=== PATIENT | male | born 2000 | race Caucasian/White ===

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

== ENCOUNTER 2021-07-09 07:46 | Emergency (ER) | payer BC ==
--- NOTE | 2021-07-09 08:54 | CR ---
Chest: PA view of the chest was obtained. Comparison: No prior chest imaging is available. Heart size and mediastinum are normal. Previous sternotomy is seen. Lungs are clear with no acute parenchymal change. Bony structures show nothing acute. Impression: 1. Prior sternotomy. 2. Nothing acute is seen on PA chest x-ray. Diagnostic code #2
--- NOTE | 2021-07-09 08:54 | CR ---
CT neck Technique: AP and lateral views of the neck were obtained. Comparison: No prior neck study is available. Epiglottis is not well seen and may be slightly prominent in size. Minimal soft tissue prominence is also seen within the lower prevertebral soft tissues below the epiglottis. No radiopaque foreign object is seen. No bony abnormality is appreciated. Impression: 1. Findings questionable for slight prominence of the epiglottis and mild prevertebral soft tissue swelling below the epiglottis. Please correlate if patient has correlating symptoms. 2. Two-view soft tissue neck exam is otherwise unremarkable. Diagnostic code #5
--- NOTE | 2021-07-09 08:58 | EDM.PDOC ---
ED HPI GENERAL MEDICAL PROBLEM - General Chief Complaint: Respiratory Problem Stated Complaint: SORE THROAT Time Seen by Provider: 07/09/21 07:51 Source of Information: Reports: Patient History Limitations: Reports: No Limitations - History of Present Illness INITIAL COMMENTS - FREE TEXT/NARRATIVE: The patient presents with a sore throat, cough and trouble breathing. This all started 9 days ago with a sore throat. It progressed to a cough. He was tested on Thursday for COVID 19 and it was negative. Today he had shortness of breath and nearly passed out at work. He has no fever or chills. My nurse says he has a stridor when he coughs. He has no chest pain. He has no abdominal pain, nausea or vomiting. He vapes. He has a history of heart surgery as a child to repair a septal defect. Onset: Gradual Duration: Day(s): (9) Location: Reports: Other (throat) Quality: Reports: Sharp Severity: Moderate Improves with: Reports: None Worsens with: Reports: None Associated Symptoms: Reports: Cough, Shortness of Breath. Denies: Chest Pain, Fever/Chills Throat Pain Score (Numeric/FACES): 8 - Related Data Allergies Allergy/AdvReac Type Severity Reaction Status Date / Time Iodinated Contrast Media Allergy Airway Verified 07/09/21 10:07 Tightness Home Meds: Home Meds Amoxicillin 875 mg PO BID #20 tab 07/09/21 [Rx] predniSONE [Prednisone] 40 mg PO DAILY #10 tablet 07/09/21 [Rx] Past Medical History - Past Health History Medical/Surgical History: Denies Medical/Surgical History Neurological History: Reports: Migraines Psychiatric History: Reports: Anxiety, Depression - Past Surgical History Cardiovascular Surgical History: Reports: Other (See Below) Other Cardiovascular Surgeries/Procedures: hole in heart repair. Social & Family History - Tobacco Use Tobacco Use Status *Q: Current Every Day Tobacco User Years of Tobacco use: 5 Packs/Tins Daily: 0.2 - Caffeine Use Caffeine Use: Reports: Energy Drinks - Recreational Drug Use Recreational Drug Type: Reports: Marijuana/Hashish ED ROS GENERAL - Review of Systems Review Of Systems: See Below Constitutional: Reports: No Symptoms HEENT: Reports: Throat Pain Respiratory: Reports: Shortness of Breath, Cough Cardiovascular: Reports: No Symptoms Endocrine: Reports: No Symptoms GI/Abdominal: Reports: No Symptoms : Reports: No Symptoms Musculoskeletal: Reports: No Symptoms ED EXAM, GENERAL - Physical Exam Exam: See Below Exam Limited By: No Limitations General Appearance: Alert, No Apparent Distress Ears: Normal External Exam Nose: Normal Inspection Throat/Mouth: Other (erythema and edema of the oropharynx and tonsils) Head: Atraumatic, Normocephalic Neck: Normal Inspection Respiratory/Chest: No Respiratory Distress, Stridor Cardiovascular: Regular Rate, Rhythm, No Edema, No Murmur GI/Abdominal: Soft, Non-Tender, No Organomegaly, No Mass Back Exam: Normal Inspection Extremities: Normal Inspection Course - Vital Signs Last Recorded V/S: Last Vital Signs Temp 97.5 F 07/09/21 10:04 Pulse 85 07/09/21 10:04 Resp 20 07/09/21 10:04 BP 128/76 07/09/21 10:04 Pulse Ox 96 07/09/21 10:04 - Orders/Labs/Meds Orders: Active Orders 24 hr Category Date Time Status Peripheral IV Care [RC] . DIRECTED Care 07/09/21 09:02 Active BLOOD CULTURE [MREF] Stat Lab 07/09/21 09:15 Received BLOOD CULTURE [MREF] Stat Lab 07/09/21 09:15 Received Sodium Chloride 0.9% [Normal Saline] 1,000 ml Med 07/09/21 09:15 Active IV ASDIRECTED Sodium Chloride 0.9% [Saline Flush] Med 07/09/21 09:01 Active 10 ml FLUSH ASDIRECTED PRN Blood Culture x2 Reflex Set [OM.PC] Stat Oth 07/09/21 09:02 Ordered Peripheral IV Insertion Adult [OM.PC] Stat Oth 07/09/21 09:01 Ordered Medication Orders Sodium Chloride (Normal Saline) 1,000 mls @ 125 mls/hr IV ASDIRECTED RANJAN Last Admin: 07/09/21 09:37 Dose: 125 mls/hr Documented by: KATHRIN Sodium Chloride (Sodium Chloride 0.9% 10 Ml Syringe) 10 ml FLUSH ASDIRECTED PRN PRN Reason: Keep Vein Open Last Admin: 07/09/21 09:21 Dose: 10 ml Documented by: KATHRIN Labs: Laboratory Tests 07/09/21 07/09/21 07/09/21 Range/Units 08:10 08:10 09:15 WBC 8.78 (4.23-9.07) K/mm3 RBC 4.94 (4.63-6.08) M/mm3 Hgb 15.6 (13.7-17.5) gm/dl Hct 46.5 (40.1-51.0) % MCV 94.1 H (79.0-92.2) fl MCH 31.6 (25.7-32.2) pg MCHC 33.5 (32.2-35.5) g/dl RDW Std Deviation 42.6 (35.1-43.9) fL Plt Count 212 (163-337) K/mm3 MPV 10.3 (9.4-12.3) fl Neut % (Auto) 72.4 H (34.0-67.9) % Lymph % (Auto) 14.7 L (21.8-53.1) % Harris % (Auto) 12.4 H (5.3-12.2) % Eos % (Auto) 0.2 L (0.8-7.0) Baso % (Auto) 0.2 (0.1-1.2) % Neut # (Auto) 6.35 H (1.78-5.38) K/mm3 Lymph # (Auto) 1.29 L (1.32-3.57) K/mm3 Harris # (Auto) 1.09 H (0.30-0.82) K/mm3 Eos # (Auto) 0.02 L (0.04-0.54) K/mm3 Baso # (Auto) 0.02 (0.01-0.08) K/mm3 Manual Slide Review Abnormal smear Sodium (136-145) mEq/L Potassium (3.5-5.1) mEq/L Chloride (98-107) mEq/L Carbon Dioxide (21-32) mEq/L Anion Gap (5-15) BUN (7-18) mg/dL Creatinine (0.7-1.3) mg/dL Est Cr Clr Drug Dosing mL/min Estimated GFR (MDRD) (>60) mL/min BUN/Creatinine Ratio (14-18) Glucose (70-99) mg/dL Calcium (8.5-10.1) mg/dL Total Bilirubin (0.2-1.0) mg/dL AST (15-37) U/L ALT (16-63) U/L Alkaline Phosphatase (46-116) U/L C-Reactive Protein (<1.0) mg/dL Total Protein (6.4-8.2) g/dl Albumin (3.4-5.0) g/dl Globulin gm/dL Albumin/Globulin Ratio (1-2) SARS-CoV-2 RNA (ALEX) Negative (NEGATIVE) Group A Strep (PCR) Not detected (NOT DETECT) 07/09/21 Range/Units 09:15 WBC (4.23-9.07) K/mm3 RBC (4.63-6.08) M/mm3 Hgb (13.7-17.5) gm/dl Hct (40.1-51.0) % MCV (79.0-92.2) fl MCH (25.7-32.2) pg MCHC (32.2-35.5) g/dl RDW Std Deviation (35.1-43.9) fL Plt Count (163-337) K/mm3 MPV (9.4-12.3) fl Neut % (Auto) (34.0-67.9) % Lymph % (Auto) (21.8-53.1) % Harris % (Auto) (5.3-12.2) % Eos % (Auto) (0.8-7.0) Baso % (Auto) (0.1-1.2) % Neut # (Auto) (1.78-5.38) K/mm3 Lymph # (Auto) (1.32-3.57) K/mm3 Harris # (Auto) (0.30-0.82) K/mm3 Eos # (Auto) (0.04-0.54) K/mm3 Baso # (Auto) (0.01-0.08) K/mm3 Manual Slide Review Sodium 137 (136-145) mEq/L Potassium 3.7 (3.5-5.1) mEq/L Chloride 100 (98-107) mEq/L Carbon Dioxide 26 (21-32) mEq/L Anion Gap 14.7 (5-15) BUN 15 (7-18) mg/dL Creatinine 1.1 (0.7-1.3) mg/dL Est Cr Clr Drug Dosing 90.09 mL/min Estimated GFR (MDRD) > 60 (>60) mL/min BUN/Creatinine Ratio 13.6 L (14-18) Glucose 91 (70-99) mg/dL Calcium 9.2 (8.5-10.1) mg/dL Total Bilirubin 1.1 H (0.2-1.0) mg/dL AST 27 (15-37) U/L ALT 40 (16-63) U/L Alkaline Phosphatase 75 (46-116) U/L C-Reactive Protein 0.8 (<1.0) mg/dL Total Protein 8.4 H (6.4-8.2) g/dl Albumin 4.5 (3.4-5.0) g/dl Globulin 3.9 gm/dL Albumin/Globulin Ratio 1.2 (1-2) SARS-CoV-2 RNA (ALEX) (NEGATIVE) Group A Strep (PCR) (NOT DETECT) Meds: Medications Generic Name Dose Route Start Last Admin Trade Name Freq PRN Reason Stop Dose Admin Sodium Chloride 1,000 mls @ 125 mls/hr 07/09/21 09:15 07/09/21 09:37 Normal Saline IV 125 mls/hr ASDIRECTED RANJAN Administration Sodium Chloride 10 ml 07/09/21 09:01 07/09/21 09:21 Sodium Chloride 0.9% 10 Ml Syringe FLUSH 10 ml ASDIRECTED PRN Administration Keep Vein Open Discontinued Medications Generic Name Dose Route Start Last Admin Trade Name Freq PRN Reason Stop Dose Admin Ceftriaxone Sodium 2 gm/ 100 mls @ 200 mls/hr 07/09/21 09:03 07/09/21 09:26 Sodium Chloride IV 07/09/21 09:32 200 mls/hr ONETIME ONE Administration Iopamidol 80 ml 07/09/21 09:59 07/09/21 10:03 Iopamidol 612 Mg/Ml 100 Ml Bottle IVPUSH 07/09/21 10:00 80 ml ONETIME ONE Administration Methylprednisolone Sodium Succinate 125 mg 07/09/21 11:08 07/09/21 11:16 Methylprednisolone Sodium Succinate 125 Mg/2 Ml Sdv IVPUSH 07/09/21 11:09 125 mg ONETIME ONE Administration Ondansetron HCl 4 mg 07/09/21 09:55 07/09/21 09:59 Ondansetron 4 Mg/2 Ml Sdv IVPUSH 07/09/21 09:56 4 mg ONETIME ONE Administration Ondansetron HCl Confirm 07/09/21 09:56 07/09/21 10:00 Ondansetron 4 Mg/2 Ml Sdv Administered 07/09/21 09:57 Not Given Dose 4 mg .ROUTE .STK-MED ONE Sodium Chloride 10 ml 07/09/21 09:59 07/09/21 10:03 Sodium Chloride 0.9% 10 Ml Syringe FLUSH 07/09/21 10:00 10 ml ONETIME ONE Administration - Re-Assessments/Exams Free Text/Narrative Re-Assessment/Exam: 07/09/21 09:00 I ordered strep, influenza, COVID, CXR and an x-ray of the soft tissue of his neck. His influenza is negative. His CXR looks good. His x-ray shows the epiglottis is enlarged and the soft tissue posterior to that. I have ordered labs, blood cultures, rocephin 2 grams IV, and a CT soft tissue of the neck. 07/09/21 09:04 07/09/21 11:13 His CBC and CMP look good. His COVID, strep and influenza are negative. The CT shows normal sized epiglottis. Slightly prominent prevertebral soft tissues inferiorly. Slightly prominent uvula. 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 No additional abnormality is appreciated. I will get him a dose of solu-medrol 125mg IV and I will get him on some amoxicillin and prednisone. Departure - Departure Time of Disposition: 11:20 Disposition: Home, Self-Care 01 Condition: Good Clinical Impression: Pharyngitis Qualifiers: Pharyngitis/tonsillitis etiology: other specified organisms Qualified Code(s): J02.8 - Acute pharyngitis due to other specified organisms - Discharge Information *PRESCRIPTION DRUG MONITORING PROGRAM REVIEWED*: Not Applicable *COPY OF PRESCRIPTION DRUG MONITORING REPORT IN PATIENT LUCINDA: Not Applicable Prescriptions: Amoxicillin 875 mg PO BID #20 tab predniSONE [Prednisone] 40 mg PO DAILY #10 tablet Referrals: PCP,None [Primary Care Provider] - Vaughn Vega MD [Physician] - 1 Week Forms: ED Department Discharge Additional Instructions: Drink plenty of fluids. Take the amoxicillin 2 times per day for 10 days. Take the prednisone daily for 5 days. Take tylenol or motrin as needed for fever or pain. Drink cold drinks and eat softer foods. Try to sleep with your head up slightly to help with any swelling. Please return if you are worse. Sepsis Event Note (ED) - Evaluation Sepsis Screening Result: No Definite Risk - Focused Exam Vital Signs: Vital Signs Temp Pulse Resp BP Pulse Ox 07/09/21 10:04 97.5 F 85 20 128/76 96 07/09/21 09:30 97.5 F 62 18 125/90 97 07/09/21 08:59 52 L 116/69 97 07/09/21 07:54 97.9 F 80 16 130/93 H 98 - My Orders Last 24 Hours: My Active Orders 07/09/21 09:01 Sodium Chloride 0.9% [Saline Flush] 10 ml FLUSH ASDIRECTED PRN Peripheral IV Insertion Adult [OM.PC] Stat 07/09/21 09:02 Peripheral IV Care [RC] . DIRECTED Blood Culture x2 Reflex Set [OM.PC] Stat 07/09/21 09:15 BLOOD CULTURE [MREF] Stat BLOOD CULTURE [MREF] Stat Sodium Chloride 0.9% [Normal Saline] 1,000 ml IV ASDIRECTED - Assessment/Plan Last 24 Hours: My Active Orders 07/09/21 09:01 Sodium Chloride 0.9% [Saline Flush] 10 ml FLUSH ASDIRECTED PRN Peripheral IV Insertion Adult [OM.PC] Stat 07/09/21 09:02 Peripheral IV Care [RC] . DIRECTED Blood Culture x2 Reflex Set [OM.PC] Stat 07/09/21 09:15 BLOOD CULTURE [MREF] Stat BLOOD CULTURE [MREF] Stat Sodium Chloride 0.9% [Normal Saline] 1,000 ml IV ASDIRECTED
[2021-07-09] MEDS ORDERED: Sodium Chloride 0.9% 10 ML Syringe FLUSH PRN (09:01)
[2021-07-09] MEDS ORDERED: cefTRIAXone 2 GM in Sodium Chloride 0.9% 100 ML IV ONE (09:03)
[2021-07-09] MEDS ORDERED: Sodium Chloride 0.9% 1,000 ML IV SCH (09:15)
[2021-07-09] MEDS ORDERED: Ondansetron 4 MG/2 ML SDV IVPUSH ONE (09:55)
[2021-07-09] MEDS ORDERED: Ondansetron 4 MG/2 ML SDV ONE (09:56)
[2021-07-09] MEDS ORDERED: Iopamidol 612 MG/ML 100 ML Bottle IVPUSH ONE (09:59)
[2021-07-09] MEDS ORDERED: Sodium Chloride 0.9% 10 ML Syringe FLUSH ONE (09:59)
--- NOTE | 2021-07-09 10:39 | CT ---
CT neck Technique: Multiple axial sections through the neck were obtained. Intravenous contrast was utilized. Reconstructed coronal and sagittal images were obtained. Comparison: Prior CT neck study performed earlier on the same day (8:16 AM). Findings: Epiglottis appears normal in size. Minimal soft tissue swelling is noted within the inferior prevertebral soft tissues. Uvula is also slightly prominent in size. Visualized paranasal sinuses show a retention cyst within the inferior left maxillary sinus which is chronic and measures 1.3 cm. Mastoid sinuses are clear. Parotid salivary glands and submandibular salivary glands appear within normal limits. Visualized lung apices are clear. Bone window settings were reviewed which show no acute osseous finding. Impression: 1. Normal-sized epiglottis. Slightly prominent prevertebral soft tissues inferiorly. Slightly prominent uvula. 2. 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 3. No additional abnormality is appreciated. Diagnostic code #2
[2021-07-09] MEDS ORDERED: methylPREDNISolone Sodium Succinate 125 MG/2 ML SDV IVPUSH ONE (11:08)
[2021-07-09 11:44] VITALS: BP 122/82; PULSE 66
== END 2021-07-09 11:44 | disposition home or self-care (01) ==
LOC: JD.ED 07:46
DX: J02.8 Acute pharyngitis due to other specified organisms (principal); Z72.0 Tobacco use; Z91.041 Radiographic dye allergy status
CPT/HCPCS: 36415; 70360; 70491; 71045; 80053; 85025; 86140; 87040; 87635; 87651; 87804; 96365; 96375; 99283; J0696; J2405; J2930; J7030; Q9967; U0002

== ENCOUNTER 2021-09-07 06:46 | Emergency (ER) | payer BC ==
[2021-09-07 07:27] VITALS: BP 123/78; PULSE 79
--- NOTE | 2021-09-07 08:01 | EDM.PDOC ---
ED HPI GENERAL MEDICAL PROBLEM - General Chief Complaint: Respiratory Problem Stated Complaint: HEADACHE COUGH Time Seen by Provider: 09/07/21 07:59 - History of Present Illness INITIAL COMMENTS - FREE TEXT/NARRATIVE: 22-year-old male presents the emergency room with nausea vomiting cough and a migraine. This is been getting worse over the last several days. Patient has not had a Covid vaccine or flu shot. Patient has a history of migraines he has a horrible one right now he thinks this was brought on by the nausea vomiting and cough. His symptoms started on but really got bad yesterday. He is not aware of any fevers he has been chilled at times. He is thrown up at least 4 times today multiple times yesterday. Today he has developed a stabbing pain in the right side of his chest. He has a history of depression anxiety migraines, but is not taking any routine medications at this point. He is allergic to IV contrast for imaging studies. 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 Denies: Fever HEENT: Reports: No Symptoms Respiratory: Reports: Cough Cardiovascular: Reports: No Symptoms Endocrine: Reports: No Symptoms GI/Abdominal: Reports: Abdominal Pain (Associated with vomiting), Nausea, Vomiting : Reports: No Symptoms Musculoskeletal: Reports: Other (Generalized aches and pains) Skin: Reports: No Symptoms Neurological: Reports: Headache Psychiatric: Reports: No Symptoms Hematologic/Lymphatic: Reports: No Symptoms Immunologic: Reports: No Symptoms ED EXAM, GENERAL - Physical Exam Exam: See Below Exam Limited By: No Limitations General Appearance: Alert, Mild Distress (He is having a hard time getting relaxed) Eye Exam: Bilateral Eye: Normal Inspection Ears: Normal External Exam, Normal Canal, Hearing Grossly Normal, Normal TMs Nose: Normal Inspection, Normal Mucosa, No Blood Throat/Mouth: Normal Inspection, Normal Lips, Normal Teeth, Normal Gums, Normal Oropharynx, Normal Voice, No Airway Compromise Head: Atraumatic, Normocephalic Neck: Normal Inspection, Supple, Non-Tender, Full Range of Motion. No: Lymphadenopathy (L), Lymphadenopathy (R) Respiratory/Chest: No Respiratory Distress, Lungs Clear, Normal Breath Sounds Cardiovascular: Regular Rate, Rhythm, No Edema, No Murmur GI/Abdominal: Normal Bowel Sounds, Soft, Non-Tender Back Exam: Normal Inspection. No: CVA Tenderness (L), CVA Tenderness (R) Extremities: Normal Inspection Neurological: Alert, Oriented, Normal Cognition, No Motor/Sensory Deficits Skin Exam: Warm, Dry, Intact Course - Vital Signs Last Recorded V/S: Last Vital Signs Temp 36.6 C 09/07/21 07:25 Pulse 79 09/07/21 07:25 Resp 18 09/07/21 07:25 BP 123/78 09/07/21 07:25 Pulse Ox 96 09/07/21 07:25 - Orders/Labs/Meds Orders: Active Orders 24 hr Category Date Time Status Chest 1V Frontal [CR] Stat Exams 09/07/21 08:06 Taken Labs: Laboratory Tests 09/07/21 09/07/21 09/07/21 Range/Units 07:26 08:25 08:25 WBC 6.23 (4.23-9.07) K/mm3 RBC 5.49 (4.63-6.08) M/mm3 Hgb 17.3 D (13.7-17.5) gm/dl Hct 50.9 (40.1-51.0) % MCV 92.7 H (79.0-92.2) fl MCH 31.5 (25.7-32.2) pg MCHC 34.0 (32.2-35.5) g/dl RDW Std Deviation 42.6 (35.1-43.9) fL Plt Count 197 (163-337) K/mm3 MPV 10.6 (9.4-12.3) fl Neut % (Auto) 71.6 H (34.0-67.9) % Lymph % (Auto) 14.4 L (21.8-53.1) % [place] % (Auto) 13.3 H (5.3-12.2) % Eos % (Auto) 0.3 L (0.8-7.0) Baso % (Auto) 0.2 (0.1-1.2) % Neut # (Auto) 4.46 (1.78-5.38) K/mm3 Lymph # (Auto) 0.90 L (1.32-3.57) K/mm3 [place] # (Auto) 0.83 H (0.30-0.82) K/mm3 Eos # (Auto) 0.02 L (0.04-0.54) K/mm3 Baso # (Auto) 0.01 (0.01-0.08) K/mm3 Sodium 136 (136-145) mEq/L Potassium 3.8 (3.5-5.1) mEq/L Chloride 96 L (98-107) mEq/L Carbon Dioxide 27 (21-32) mEq/L Anion Gap 16.8 H (5-15) BUN 15 (7-18) mg/dL Creatinine 1.1 (0.7-1.3) mg/dL Est Cr Clr Drug Dosing 86.37 mL/min Estimated GFR (MDRD) > 60 (>60) mL/min BUN/Creatinine Ratio 13.6 L (14-18) Glucose 85 (70-99) mg/dL Calcium 8.8 (8.5-10.1) mg/dL Total Bilirubin 0.8 (0.2-1.0) mg/dL AST 49 H (15-37) U/L ALT 48 (16-63) U/L Alkaline Phosphatase 71 (46-116) U/L Total Protein 8.0 (6.4-8.2) g/dl Albumin 4.5 (3.4-5.0) g/dl Globulin 3.5 gm/dL Albumin/Globulin Ratio 1.3 (1-2) Influenza Type A RNA Positive H (NEGATIVE) RSV RNA (INAAT) Negative (NEGATIVE) Influenza Type B RNA Negative (NEGATIVE) SARS-CoV-2 RNA (ALEX) Negative (NEGATIVE) Meds: Medications Discontinued Medications Generic Name Dose Route Start Last Admin Trade Name Zeke PRN Reason Stop Dose Admin Diphenhydramine HCl 50 mg 09/07/21 08:08 09/07/21 08:25 Diphenhydramine 50 Mg/Ml Sdv IVPUSH 09/07/21 08:09 50 mg ONETIME ONE Administration Lactated Ringer's 1,000 mls @ 999 mls/hr 09/07/21 08:08 09/07/21 08:25 Ringers, Lactated IV 09/07/21 09:08 999 mls/hr .BOLUS ONE Administration Metoclopramide HCl 5 mg 09/07/21 08:09 09/07/21 08:25 Metoclopramide 10 Mg/2 Ml Sdv IVPUSH 09/07/21 08:10 5 mg ONETIME ONE Administration - Re-Assessments/Exams Free Text/Narrative Re-Assessment/Exam: 09/07/21 09:32 Patient is doing much better after a liter of fluid. He also received 5 mg of Reglan and 50 mg of Benadryl headache is gone he is doing much better. Lab studies are significant for being positive for influenza A he is probably a little over the 48-hour corrine. Did discuss the pros and cons of Tamiflu he will need to use ibuprofen and Motrin and will give him a prescription for Zofran. Chest x-ray is unremarkable. We are still waiting on this gentleman CMP otherwise he is entirely ready to go home. 09/07/21 09:39 Chemistries are back and reviewed nothing requiring further intervention at this time. Departure - Departure Time of Disposition: 09:35 Disposition: Home, Self-Care 01 Clinical Impression: Influenza A, Nausea & vomiting, Headache - Discharge Information Prescriptions: Ondansetron [Ondansetron ODT] 4 mg PO Q6H PRN #12 tab.rapdis PRN Reason: Nausea/Vomiting Referrals: PCP,None [Primary Care Provider] - Forms: ED Department Discharge Additional Instructions: Return to the emergency room with any questions problems or worsening symptoms. Push lots of fluids. Use the nausea medication 1 every 6 hours for the next 24 hours then as needed thereafter. This was sent electronically to the [facility] in the [employer] [place]. Use Tylenol and/or Motrin as needed for discomfort the Motrin should be taken with food of some sort. Follow-up with the hospital clinic to establish and for follow-up in 1 week. [phone] Sepsis Event Note (ED) - Evaluation Sepsis Screening Result: No Definite Risk - Focused Exam Vital Signs: Vital Signs Temp Pulse Resp BP Pulse Ox 09/07/21 07:25 36.6 C 79 18 123/78 96 - My Orders Last 24 Hours: My Active Orders 09/07/21 08:06 Chest 1V Frontal [CR] Stat - Assessment/Plan Last 24 Hours: My Active Orders 09/07/21 08:06 Chest 1V Frontal [CR] Stat
[2021-09-07] MEDS ORDERED: diphenhydrAMINE 50 MG/ML SDV IVPUSH ONE (08:08)
[2021-09-07] MEDS ORDERED: Lactated Ringers 1,000 ML IV ONE (08:08)
[2021-09-07] MEDS ORDERED: Metoclopramide 10 MG/2 ML SDV IVPUSH ONE (08:09)
[2021-09-07 08:20] LABS: CORONAVIRUS COVID-19 NAA NEGATIVE (NEGATIVE)
--- NOTE | 2021-09-09 13:54 | CR ---
EXAM: XR CHEST 1 VIEW LOCATION: [facility] DATE/TIME: 09/07/2021 8:39 AM INDICATION: Cough COMPARISON: None. IMPRESSION: Heart size and mediastinum are unremarkable. Median sternotomy wires in place. Normal vasculature. Lungs and pleural spaces are clear. Linear artifact over the left hilum and left heart border. SIGNED BY: Carmelo Jean Baptiste MD 09/09/2021 12:24 PM ROXI
== END 2021-09-07 09:50 | disposition home or self-care (01) ==
LOC: JD.ED 06:46
DX: J10.1 Influenza due to other identified influenza virus with other respiratory manifestations (principal); R51.9 Headache, unspecified; R11.2 Nausea with vomiting, unspecified; Z91.041 Radiographic dye allergy status; Z72.0 Tobacco use; Z20.822 Contact with and (suspected) exposure to COVID-19
CPT/HCPCS: 0241U; 36415; 71045; 80053; 85025; 96374; 96375; 99284; J1200; J2765; J7120

== ENCOUNTER 2023-01-04 23:37 | Emergency (ER) | payer MEDICAID, OTHER ==
[2023-01-05] MEDS ORDERED: LORazepam 0.5 MG Tab PO ONE (00:02)
[2023-01-05 00:56] LABS: CORONAVIRUS COVID-19 NAA NEGATIVE (NEGATIVE)
[2023-01-05 04:28] VITALS: BP 104/76; PULSE 76
== END 2023-01-05 04:27 | disposition home or self-care (01) ==
LOC: JD.ED 23:37
DX: R45.851 Suicidal ideations (principal); F17.210 Nicotine dependence, cigarettes, uncomplicated; R94.31 Abnormal electrocardiogram [ECG] [EKG]; Z91.041 Radiographic dye allergy status; Z20.822 Contact with and (suspected) exposure to COVID-19
CPT/HCPCS: 0240U; 36415; 80053; 80179; 80306; 80307; 81003; 84443; 85025; 93005; 99285; A9270; 93010; 99284